=== PATIENT | female | born 1990 | race Caucasian/White ===

== ENCOUNTER 2019-06-22 08:36 | Outpatient (CLI) | payer OTHER ==
--- NOTE | 2019-06-22 10:05 | ULT ---
EXAM: PET W CT Skull to Mid Thigh CLINICAL HISTORY: GERD. Abdominal pain.. COMPARISON: None. FINDINGS: Pancreas: The head and proximal pancreatic body have a normal echotexture. The remainder the pancrea s is obscured by bowel gas. IVC: Visualized IVC has a normal caliber. Aorta: Visualized aorta has a normal caliber. Liver:Heterogeneous echotexture which may be due to hepatic steatosis or hepatocellular disease. Subs equent limited evaluation for hepatic masses and intrahepatic biliary dilatation. Gallbladder: No sonographic evidence of cholelithiasis, gallbladder wall thickening or pericholecysti c fluid. Nguyen's sign:Negative CBD: 0.28 cm common bile duct diameter Portal vein: Patent. Appropriate directional flow. Right kidney: Normal cortical echotexture. No hydronephrosis. Right kidney measuring 5.2 x 10.6 x 4. 6 cm in length. Left kidney: Normal cortical echotexture. No hydronephrosis . Left kidney measuring 10.5 x 6.0 x 5.0 cm in length Spleen: Normal echotexture, measuring 8.9 cm in maximum dimension IMPRESSION: 1. Heterogeneous echotexture of liver which may be due to hepatic steatosis or hepatocellular disease . 2. No sonographic evidence of cholelithiasis or cholecystitis.
== END 2019-06-22 08:37 | disposition home or self-care (01) ==
LOC: SCSULT 08:36
PROVIDERS: ATTEND Internal Medicine Gastroenterology
DX: K21.9 Gastro-esophageal reflux disease without esophagitis (principal); R10.9 Unspecified abdominal pain; R35.0 Frequency of micturition; R19.4 Change in bowel habit; K76.89 Other specified diseases of liver
CPT/HCPCS: 93975

== ENCOUNTER 2019-08-31 07:00 | Emergency (ER) | payer OTHER ==
[2019-08-31 08:08] LABS: BHCG - Serum Negative (NEGATIVE); Pregs Control Background? CLEAR/WHITE (CLR/WHITE); Pregs Control Bar Appear? YES (CONTROL BAR)
== END 2019-08-31 08:26 | disposition home or self-care (01) ==
LOC: ERS 07:00
DX: R07.9 Chest pain, unspecified (principal); R20.2 Paresthesia of skin
CPT/HCPCS: 36415; 84703; 85379; 93005

== ENCOUNTER 2020-01-23 03:39 | Emergency (ER) | payer OTHER ==
[2020-01-23] MEDS ORDERED: Mag-Al 1200 mg/1200 mg/30 ML UDCUP ONE (04:41)
[2020-01-23] MEDS ORDERED: Lidocaine Viscous Sol 2% 15 ml UD Cup ONE (04:41)
[2020-01-23] MEDS ORDERED: Famotidine 20 MG TAB ONE (04:42)
== END 2020-01-23 05:50 | disposition home or self-care (01) ==
LOC: ERS 03:39
DX: K21.9 Gastro-esophageal reflux disease without esophagitis (principal); F41.9 Anxiety disorder, unspecified; J45.909 Unspecified asthma, uncomplicated; Z79.899 Other long term (current) drug therapy
CPT/HCPCS: 99284

== ENCOUNTER 2020-01-25 15:58 | Outpatient (CLI) | payer OTHER ==
[~2020-01-25 15:58] MED LIST: Iopamidol 370 76% 100 ML VIAL ONE
--- NOTE | 2020-01-25 16:49 | CT ---
CT arteriogram chest and abdomen with IV contrast and 3-D imaging HISTORY: Chest and abdomen pain. FINDINGS: There is good contrast opacification of the pulmonary arteries and aorta. Normal branching of the great vessels at the aortic arch. No filling defects evident. Abdominal aorta and visceral arteries are patent. No evidence of dissection or aneurysm. Secondary ri ght renal artery to the inferior pole is noted. Images including the liver and spleen show no abnormalities. IMPRESSION : No evidence of pulmonary embolus or other acute vascular abnormality.
== END 2020-01-25 15:59 | disposition home or self-care (01) ==
LOC: CT 15:58
PROVIDERS: ATTEND Internal Medicine Gastroenterology
DX: K21.9 Gastro-esophageal reflux disease without esophagitis (principal); F41.9 Anxiety disorder, unspecified; E66.3 Overweight; R06.00 Dyspnea, unspecified
CPT/HCPCS: 71275; Q9967

== ENCOUNTER 2020-04-18 08:50 | Outpatient (CLI) | payer OTHER ==
--- NOTE | 2020-04-18 09:45 | RAD ---
PA AND LATERAL CHEST: HISTORY: Dyspnea. FINDINGS: Heart size and mediastinum are within normal limits. The lungs are clear of infiltrates. There is s coliotic change of the spine. IMPRESSION: 1. Scoliosis. 2. No active intrathoracic disease. POS: [facility]
== END 2020-04-18 08:51 | disposition home or self-care (01) ==
LOC: BICRAD 08:50
PROVIDERS: ATTEND Internal Medicine Critical Care Medicine
DX: R06.00 Dyspnea, unspecified (principal); M41.9 Scoliosis, unspecified
CPT/HCPCS: 71046